=== PATIENT | female | born 1940 | race Caucasian/White ===

== ENCOUNTER → 2019-05-12 14:05 | Outpatient (BNVA) | payer MEDICARE, SELFPAY | PROVIDERS: Family Provider Nurse Practitioner; PCP Nurse Practitioner; Visit Provider Nurse Practitioner | DX: E03.8 Other specified hypothyroidism (principal); I10 Essential (primary) hypertension; F41.9 Anxiety disorder, unspecified | CPT/HCPCS: 80053; 81003; 84443; 85025 ==

== ENCOUNTER → 2019-08-22 10:46 | Outpatient (BNVA) | payer MEDICARE, SELFPAY | PROVIDERS: Family Provider Nurse Practitioner; PCP Nurse Practitioner; Visit Provider Nurse Practitioner | DX: E03.8 Other specified hypothyroidism (principal); Z87.39 Personal history of other diseases of the musculoskeletal system and connective tissue; F41.9 Anxiety disorder, unspecified; I10 Essential (primary) hypertension; D64.9 Anemia, unspecified | CPT/HCPCS: 80048; 82607; 82728; 83550; 85025; 85045 ==

== ENCOUNTER → 2019-11-27 11:46 | Outpatient (BNVA) | payer MEDICARE, SELFPAY | PROVIDERS: Family Provider Nurse Practitioner; PCP Nurse Practitioner; Visit Provider Nurse Practitioner | DX: I10 Essential (primary) hypertension (principal); E03.8 Other specified hypothyroidism; E53.8 Deficiency of other specified B group vitamins; Z87.39 Personal history of other diseases of the musculoskeletal system and connective tissue; F41.9 Anxiety disorder, unspecified | CPT/HCPCS: 80053; 80061; 84443; 85025 ==

== ENCOUNTER → 2020-05-20 11:15 | Outpatient (BNVA) | payer MEDICARE, SELFPAY | PROVIDERS: Family Provider Nurse Practitioner; PCP Nurse Practitioner; Visit Provider Nurse Practitioner | DX: I10 Essential (primary) hypertension (principal); Z87.39 Personal history of other diseases of the musculoskeletal system and connective tissue; E53.8 Deficiency of other specified B group vitamins; F41.9 Anxiety disorder, unspecified; E03.8 Other specified hypothyroidism; K59.01 Slow transit constipation | CPT/HCPCS: 80053; 80061; 82607; 84443; 85025 ==

== ENCOUNTER → 2020-06-28 10:32 | Outpatient (BNVA) | payer MEDICARE, SELFPAY | PROVIDERS: Family Provider Nurse Practitioner; PCP Nurse Practitioner; Visit Provider Nurse Practitioner | DX: I10 Essential (primary) hypertension (principal) | CPT/HCPCS: 80048 ==

== ENCOUNTER → 2020-08-24 09:21 | Outpatient (BNVA) | payer MEDICARE, SELFPAY | PROVIDERS: Family Provider Nurse Practitioner; PCP Nurse Practitioner; Visit Provider Nurse Practitioner | DX: I10 Essential (primary) hypertension (principal); Z87.39 Personal history of other diseases of the musculoskeletal system and connective tissue; E53.8 Deficiency of other specified B group vitamins; F41.9 Anxiety disorder, unspecified; E03.8 Other specified hypothyroidism; K59.01 Slow transit constipation; R41.3 Other amnesia | CPT/HCPCS: 80053; 82607; 84443; 85025 ==

== ENCOUNTER → 2020-11-15 09:34 | Outpatient (BNVA) | payer MEDICARE, SELFPAY | PROVIDERS: Family Provider Nurse Practitioner; PCP Nurse Practitioner; Visit Provider Nurse Practitioner | DX: I10 Essential (primary) hypertension (principal); E03.8 Other specified hypothyroidism; E53.8 Deficiency of other specified B group vitamins; F41.9 Anxiety disorder, unspecified; K59.01 Slow transit constipation; L98.9 Disorder of the skin and subcutaneous tissue, unspecified; Z87.39 Personal history of other diseases of the musculoskeletal system and connective tissue | CPT/HCPCS: 80053; 80061; 82607; 84443 ==

== ENCOUNTER → 2021-02-07 09:12 | Outpatient (BNVA) | payer MEDICARE, SELFPAY | PROVIDERS: Family Provider Nurse Practitioner; PCP Nurse Practitioner; Visit Provider Nurse Practitioner | DX: E03.8 Other specified hypothyroidism (principal); I10 Essential (primary) hypertension | CPT/HCPCS: 80053; 84443; 85025 ==

== ENCOUNTER → 2021-06-27 09:57 | Outpatient (BNVA) | payer MEDICARE, SELFPAY | PROVIDERS: Family Provider Nurse Practitioner; PCP Nurse Practitioner; Visit Provider Nurse Practitioner | DX: E53.8 Deficiency of other specified B group vitamins (principal); E03.8 Other specified hypothyroidism; I10 Essential (primary) hypertension | CPT/HCPCS: 80053; 80061; 82607; 83735; 84443 ==

== ENCOUNTER → 2022-01-17 09:26 | Outpatient (BNVA) | payer MEDICARE, SELFPAY | PROVIDERS: Family Provider Nurse Practitioner; PCP Nurse Practitioner; Visit Provider Nurse Practitioner | DX: E03.8 Other specified hypothyroidism (principal); I10 Essential (primary) hypertension; Z87.39 Personal history of other diseases of the musculoskeletal system and connective tissue; R41.3 Other amnesia; K59.01 Slow transit constipation; Z23 Encounter for immunization | CPT/HCPCS: 80053; 80061; 82607; 84443 ==

== ENCOUNTER → 2022-07-06 11:07 | Outpatient (BNVA) | payer MEDICARE, SELFPAY | PROVIDERS: Family Provider Nurse Practitioner; PCP Nurse Practitioner; Visit Provider Nurse Practitioner | DX: E03.8 Other specified hypothyroidism (principal); E53.8 Deficiency of other specified B group vitamins; I10 Essential (primary) hypertension | CPT/HCPCS: 80053; 80061; 82607; 84443; 85025 ==

== ENCOUNTER → 2022-08-30 11:45 | Outpatient (BNVA) | payer MEDICARE, SELFPAY | PROVIDERS: Family Provider Nurse Practitioner; PCP Nurse Practitioner; Visit Provider Nurse Practitioner Family | DX: M25.561 Pain in right knee (principal) | CPT/HCPCS: 73562 ==

== ENCOUNTER 2022-09-07 09:31 | Outpatient (CLI) | payer MEDICARE, SELFPAY ==
--- NOTE | 2022-09-07 10:00 | CT_ITS ---
WS: [id number] CT KNEE, NONCONTRAST. HISTORY: M25.561 - Pain in right knee, history of fall. Technique: All CT scans at [facility] use at least one of these dose optimization techniques: automated exposure control; mA and/or kV adjustment per patient size (includes targeted exams where dose is matched to clinical indication); or iterative reconstruction. DLP: 379.16 mGy.cm COMPARISON: Radiograph 08/30/2022 Mild tricompartment joint space narrowing with osteophytes. No fracture is identified. Several small foci of increased density within the meniscus consistent with calcifications. There is a suprapatella r joint effusion, small. Patella is normally positioned. There is a large Degroot's cyst extending over a length of 5.8 cm. Moderate calcification also noted within the superficial femoral artery and the popliteal artery. Calcification continues into the proximal tibioperoneal arteries. Small subchondral cystic changes along the tibial plateau. Bony sclerosis and osteophytes along the j oint line. CT/CT knee RT wo con* [id number] IMPRESSION: 1. No fracture or healed fracture identified. 2. Mild tricompartment osteoarthritis. 3. Advanced peripheral arterial disease. 4. Large Degroot's cyst and small suprapatellar joint effusion.
== END 2022-09-07 09:32 | disposition home or self-care (01) ==
PROVIDERS: PCP Nurse Practitioner; Visit Provider Nurse Practitioner Family
DX: S80.01XA Contusion of right knee, initial encounter (principal); M25.869 Other specified joint disorders, unspecified knee; M25.561 Pain in right knee; X58.XXXA Exposure to other specified factors, initial encounter; Y93.9 Activity, unspecified; Y92.9 Unspecified place or not applicable; Y99.9 Unspecified external cause status
CPT/HCPCS: 73700

== ENCOUNTER → 2022-09-21 09:40 | Outpatient (BNVA) | payer MEDICARE, SELFPAY | PROVIDERS: PCP Nurse Practitioner; Visit Provider Student in an Organized Health Care Education/Training Program | DX: M17.11 Unilateral primary osteoarthritis, right knee (principal) | CPT/HCPCS: 20610; 73560; 73565; 99204; J3301 ==

== ENCOUNTER → 2022-11-09 11:34 | Outpatient (BNVA) | payer MEDICARE, SELFPAY | PROVIDERS: PCP Nurse Practitioner; Visit Provider Nurse Practitioner | DX: E03.8 Other specified hypothyroidism (principal); E53.8 Deficiency of other specified B group vitamins; I10 Essential (primary) hypertension; Z87.39 Personal history of other diseases of the musculoskeletal system and connective tissue; R41.3 Other amnesia; M62.838 Other muscle spasm; E87.6 Hypokalemia; K59.01 Slow transit constipation | CPT/HCPCS: 80053; 82607; 84443 ==

== ENCOUNTER 2022-12-01 21:59 | Inpatient (IN) | payer MEDICARE, SELFPAY ==
[2022-12-01 22:00] VITALS: BP 133/62; PULSE 85; RESP 18; TEMP 36.4; O2SAT 97; BMI 25.6
--- NOTE | 2022-12-01 22:11 | XRR_ITS ---
PROCEDURE INFORMATION: Exam: XR Right Femur Exam date and time: 12/01/2022 10:32 PM Age: 82 years old Clinical indication: Injury or trauma; Fall TECHNIQUE: Imaging protocol: Radiologic exam of the right femur. Views: 2 views. COMPARISON: CR XR knee RT 3V* [id number] 08/30/2022 11:44 AM FINDINGS: Bones/joints: Comminuted angulated displaced intertrochanteric fracture right hip. If there are symptoms related to the right knee, three-view right knee without rotation may be helpful complete evaluation. Soft tissues: Unremarkable. XR/XR femur RT min 2V* [id number] IMPRESSION: 1. Comminuted angulated displaced intertrochanteric fracture right hip. 2. If there are symptoms related to the right knee, three-view right knee without rotation may be helpful complete evaluation.
--- NOTE | 2022-12-01 22:12 | XRR_ITS ---
PROCEDURE INFORMATION: Exam: XR Right Knee Exam date and time: 12/01/2022 10:36 PM Age: 82 years old Clinical indication: Injury or trauma; Fall TECHNIQUE: Imaging protocol: Radiologic exam of the right knee. Views: 1 or 2 views. COMPARISON: CR XR knee RT 3V* [id number] 08/30/2022 11:44 AM FINDINGS: Bones/joints: Moderate to severe lateral knee compartment primary osteoarthritis. Abnormal appearing periosteal thickening in the proximal fibular shaft with heterogeneous opacities. If there are symptoms related to the proximal fibular shaft, comparison with the left knee may be helpful to rule out unilateral benign or malignant pathology in the proximal right fibular shaft. Soft tissues: Normal. Other findings: No acute posttraumatic findings. XR/XR knee RT 1-2V [id number] IMPRESSION: 1. Moderate to severe lateral knee compartment primary osteoarthritis. 2. No acute posttraumatic findings. 3. Abnormal appearing periosteal thickening in the proximal fibular shaft with heterogeneous opacities. If there are symptoms related to the proximal fibular shaft, comparison with the left knee may be helpful to rule out unilateral benign or malignant pathology in the proximal right fibular shaft.
--- NOTE | 2022-12-01 22:13 | CTR_ITS ---
PROCEDURE INFORMATION: Exam: CT Cervical Spine Without Contrast Exam date and time: 12/01/2022 10:45 PM Age: 82 years old Clinical indication: Injury or trauma; Fall; Blunt trauma; Patient HX: Patient fell outside onto ground at her home. Hematoma to frontal and RT parietal. TECHNIQUE: Imaging protocol: Computed tomography of the cervical spine without contrast. Radiation optimization: All CT scans at this facility use at least one of these dose optimization techniques: automated exposure control; mA and/or kV adjustment per patient size (includes targeted exams where dose is matched to clinical indication); or iterative reconstruction. REPORTING DATA: Count of CT and Cardiac NM exams in prior 12 months: This patient has received [address] and 0 known cardiac nuclear medicine studies in the 12 months prior to the current study. COMPARISON: CT head wo con* [id number] 12/01/2022 10:42 PM RADIATION DOSE METRICS: Total DLP (mGy-cm): 657.37 FINDINGS: Bones/joints: No acute fracture. Normal alignment. No significant disc bulge or herniation. No severe spinal canal stenosis. No significant neural foraminal narrowing. There is severe degenerative disease of the cervical spine with posterior calcification of the C5 and C6 levels causing mild indentation into the spinal canal. Lungs: Lung apices are normal. Soft tissues: Unremarkable. CT/CT cervical spin wo con* [id number] IMPRESSION: No acute findings.
--- NOTE | 2022-12-01 22:13 | CTR_ITS ---
PROCEDURE INFORMATION: Exam: CT Head Without Contrast Exam date and time: 12/01/2022 10:42 PM Age: 82 years old Clinical indication: Injury or trauma; Fall; Blunt trauma (contusions or hematomas); Patient HX: Patient fell outside onto ground at her home. Hematoma to frontal and RT parietal. TECHNIQUE: Imaging protocol: Computed tomography of the head without contrast. Radiation optimization: All CT scans at this facility use at least one of these dose optimization techniques: automated exposure control; mA and/or kV adjustment per patient size (includes targeted exams where dose is matched to clinical indication); or iterative reconstruction. REPORTING DATA: Count of CT and Cardiac NM exams in prior 12 months: This patient has received [address] and 0 known cardiac nuclear medicine studies in the 12 months prior to the current study. COMPARISON: CT head wo con* [id number] 06/02/2018 3:13 PM RADIATION DOSE METRICS: Total DLP (mGy-cm): 983.58 FINDINGS: Brain: No hemorrhage. There is extensive periventricular white matter disease. No mass effect. There are no intra or extra-axial masses or collections. Basilar cisterns are patent. Cerebral ventricles: The ventricles are prominent secondary to age-appropriate cerebral atrophy. Paranasal sinuses: Visualized sinuses are unremarkable. No fluid levels. Mastoid air cells: Visualized mastoid air cells are well aerated. Bones/joints: Unremarkable. No acute fracture. Soft tissues: There is soft tissue swelling in the frontal and right parietal region. CT/CT head wo con* [id number] IMPRESSION: No acute intracranial abnormality.
--- NOTE | 2022-12-01 22:15 | ECG_ITS ---
[facility] Test Date: 2022-12-01 Pat Name: Annette Erwin Department: Room: Gender: Female Retail Training Manager: : 1940 Requested By: Guilherme Vasquez Order Number: [id number] Gurpreet MD: Ariadne Hammond M.D. Measurements Intervals [place] Rate: 78 P: 76 GA: 142 QRS: 12 QRSD: 88 T: 48 QT: 418 QTc: 476 Interpretive Statements SINUS RHYTHM WITH OCCASIONAL SUPRAVENTRICULAR PREMATURE COMPLEXES Compared to ECG 06/02/2018 17:23:38 No significant changes Electronically Signed On 12-02-2022 12:11:48 CDT by Ariadne Hammond M.D. [email or web address] at stone countyCalastonekindred healthcareColored Solar/store/OM/[id number]
--- NOTE | 2022-12-01 22:18 | W.ED.FALL ---
HPI - Fall General: Chief Complaint: Fall Stated Complaint: FALL Time Seen by Provider: 12/01/22 22:01 History of Present Illness: 82-year-old female who lives at home with family. She fell outdoors at home, striking a door frame likely with her head, and falling on her right side. She complains of right hip and knee pain. She denies headache. She does not know if she was knocked unconscious, but she does not believe so. No blurred vision. No vomiting. She arrives awake, alert, and talking. Family with her. She did not feel ill prior to her fall. She did lay on the ground for 3 hours or so before her family found her. complaint: fall Associated symptoms-after fall: Denies abdominal pain, chest pain, headache(s), neck pain or vertigo Review of Systems Const: Denies: fever(s) Eyes: Denies: blurry vision ENMT: Denies: throat pain or dental pain Card: Denies: chest pain or palpitations Resp: Denies: dyspnea, productive cough or non-productive cough GI: Denies: abdominal pain or vomiting Musc: Reports: extremity pain and joint pain; Denies: neck pain or back pain Neuro: Denies: headache(s), dizziness or vertigo PFSH ED PFSH: Medical History Adult onset hypothyroidism Enlarged thyroid HTN (hypertension) Hx of gout Slow transit constipation Surgical History History of cataract surgery both eyes 2021 History of hysterectomy (08/04/13) History of shoulder surgery (~2000) left Hx of carpal tunnel repair (~2000) right Hx of cholecystectomy (~1999) Hx of colonoscopy (~08/06/18) Hx of foot surgery (~1998) left heel Hx of right knee surgery (~11/14/15) Family History Father Stroke Alzheimer disease Mother Hypertension Denies family history of Bleeding disorder Social History Smoking and tobacco status: never smoked Second hand smoke exposure: No Smoking risk assessment/counseling performed?: No Alcohol intake: never Desire information about alcohol rehabilitation?: No Counseling given: No Substance/Drug Use: never Desire information about substance/drug rehabilitation?: No Counseling given: No Adopted: No Caregiver/support person: No Lives independently: Yes Household members: spouse and none Housing: House Marital status: / service: No Current occupational status: unemployed and retired Current occupational exposures/hazards: No Pets and animals: No Do you think of yourself as: Straight/Heterosexual Current gender identity: Female Physical Exam Const: COMMON NORMALS: no acute distress GENERAL APPEARANCE: cooperative; not ill appearing and not frail appearing HENMT: COMMON NORMALS: normocephalic and Normal external nose present HEAD & SCALP: normocephalic and contusion (Large to forehead with hematoma. No laceration) FACE & SINUS: normal facial exam and face symmetric NOSE: Normal external nose present Eye: COMMON NORMALS: Equal, round and reactive pupils present and EOMs intact bilaterally PUPIL: Yes Equal, round and reactive pupils present Neck/C-Spine: GENERAL: Yes trachea midline Chest: CHEST: Yes Symmetrical chest wall rise Resp: COMMON NORMALS: normal respiratory effort, No retractions, No use of accessory muscles and clear to auscultation bilaterally AUSCULTATION: clear to auscultation bilaterally Cardio: COMMON NORMALS: regular rate and regular rhythm RATE: regular rate RHYTHM: regular rhythm GI: COMMON NORMALS: Normal to inspection, nondistended, normoactive bowel sounds present Extremity: NARRATIVE EXTREMITY EXAM: Examination of the right lower extremity reveals tenderness over the anterior knee. It is held in a flexed position. The hip is held in external rotation position. On gentle internal rotation, the patient complains of thigh pain. Pulses and sensation are intact distally. Neuro: CAROL ANN COMA SCALE: document GCS findings Plato coma scale eye opening: Spontaneous Carol Ann coma scale verbal response: Orientated Plato coma scale motor response: Obey commands Plato coma scale total score: 15 SENSORY EXAM: Yes extremities (intact) Psych: COMMON NORMALS: speech normal SPEECH: Yes normal speech Skin: COMMON NORMALS: no rashes or lesions noted GENERAL SKIN EXAM: no rashes or lesions noted Course Vital Signs: Vital signs: Vital Signs Temperature 97.6 F 12/01/22 22:00 Pulse Rate 79 12/01/22 23:03 Respiratory Rate 23 H 12/01/22 23:52 Blood Pressure 140/41 12/01/22 23:53 Pulse Oximetry 99 12/01/22 23:03 MDM - Fall Medical Decision Making Hip x-ray shows right intertrochanteric femur fracture extending into the femoral neck. Laboratory shows a white blood cell count of 22 likely due to demargination after fall. Sodium is 132. Creatinine 1.1. Liver enzymes are normal. Urinalysis is pending. Youngblood is being placed. Chest x-ray is nonacute. Orthopedics is consulted from the ER. Hospitalist consulted as well. Hospitalist will see the patient in the ER. Head and cervical spine CT reads are pending. Lab Data 12/01/22 22:28 12/01/22 22:28 Radiology Impressions Femur X-Ray 12/01/22 22:11 IMPRESSION: 1. Comminuted angulated displaced intertrochanteric fracture right hip. 2. If there are symptoms related to the right knee, three-view right knee without rotation may be helpful complete evaluation. Knee X-Ray 12/01/22 22:12 IMPRESSION: 1. Moderate to severe lateral knee compartment primary osteoarthritis. 2. No acute posttraumatic findings. 3. Abnormal appearing periosteal thickening in the proximal fibular shaft with heterogeneous opacities. If there are symptoms related to the proximal fibular shaft, comparison with the left knee may be helpful to rule out unilateral benign or malignant pathology in the proximal right fibular shaft. Cervical Spine CT 12/01/22 22:13 IMPRESSION: No acute findings. Head CT 12/01/22 22:13 IMPRESSION: No acute intracranial abnormality. Chest X-Ray 12/01/22 22:54 IMPRESSION: No acute findings. Laboratory Results WBC 22.63 10^3/uL (3.29-11.43) H 12/01/22 22:28 RBC 3.23 10^6/uL (3.85-5.65) L 12/01/22 22:28 Hgb 11.00 g/dL (11.27-16.99) L 12/01/22 22: Hct 33.3 % (36-47) L 12/01/22 22: MCV 103.1 fl (85-98) H 12/01/22 22: MCH 34.1 pg (27-33) H 12/01/22 22: MCHC 33.0 g/dL (30-55) 12/01/22 22: RDW 14.3 % (12.1-15.1) 12/01/22 22: Plt Count 311 10^3/cmm (157-399) 12/01/22 22: MPV 10.1 fL (7.4-10.4) 12/01/22 22: Neut % (Auto) 90.1 % 12/01/22 22: Lymph % (Auto) 3.3 % 12/01/22 22: [place] % (Auto) 5.4 % 12/01/22 22: Eos % (Auto) 0.0 % 12/01/22 22: Baso % (Auto) 0.4 % 12/01/22: Neut # (Auto) 20.40 10^3/uL (1.8-7.7) H 12/01/22: Lymph # (Auto) 0.8 10^3/uL (0.8-4.8) 12/01/22: [place] # (Auto) 1.2 10^3/uL (0.2-0.9) H 12/01/22 22: Eos # (Auto) 0.0 10^3/uL (0.0-0.8) 12/01/22: Baso # (Auto) 0.1 10^3/uL (0.0-0.1) 12/01/22: Nucleated RBC % (auto) 0 % 12/01/22: Nucleated RBCs # 0.0 /100WBC 12/01/22 22: Sodium 132 mmol/L (136-145) L 12/01/22 22: Potassium 3.6 mmol/L (3.5-5.1) 12/01/22: Chloride 96 mmol/L (98-107) L 12/01/22: Carbon Dioxide 22 mmol/L (22-29) 12/01/22: Anion Gap 17.6 (5-19) 12/01/22 22: BUN 17 mg/dL (8-23) 12/01/22 22: Creatinine 1.1 mg/dL (0.5-0.9) H 12/01/22 22: GFR Calculation Not Reportable 12/01/22:28 Glucose 165 mg/dL (65-115) H 12/01/22 22:28 Calculated Osmolality 279 mOsm/kg (285-295) L 12/01/22 22:28 Calcium 9.4 mg/dL (8.5-10.5) 12/01/22 22:28 Total Bilirubin 0.5 mg/dL (0.15-1.2) 12/01/22 22:28 AST 16 U/L (0-32) 12/01/22 22:28 ALT 11 U/L (0-33) 12/01/22 22:28 Alkaline Phosphatase 94 U/L (35-105) 12/01/22 22:28 Creatine Kinase 74 U/L (26-192) 12/01/22 22:28 Total Protein 7.4 g/dL (6.6-8.7) 12/01/22 22:28 Albumin 4.2 g/dL (3.5-5.2) 12/01/22 22:28 Globulin 3.2 g/dL (1.3-4.6) 12/01/22 22:28 All radiology interpretation(s) finalized by discharge Discharge Plan Discharge Patient Disposition: Admitted As Inpatient Admit Provider: Kellie Wilkins Clinical Impression: Fracture of right hip Condition: Stable Coding Level of Care Code ED [employer] Plant Operator for Nirmal Garg
[2022-12-01 22:21] VITALS: RESP 16
[2022-12-01] MEDS: morphine 4 mg/mL SDV 1 mL IVP (22:21)
[2022-12-01] MEDS: ondansetron 2 mg/ML SDV 2 mL 4 MG IVP (22:22)
[2022-12-01 22:33] LABS: Basophils # 0.1 10^3/uL (0.0-0.1); Basophils % 0.4 %; Hematocrit 33.3 % (36-47); Lymphocytes # 0.8 10^3/uL (0.8-4.8); Lymphocytes % 3.3 %; Mean Corpuscular Hemoglobin 34.1 pg (27-33); Mean Corpuscular Volume 103.1 fl (85-98); Mean Platelet Volume 10.1 fL (7.4-10.4); Monocytes # 1.2 10^3/uL (0.2-0.9); Monocytes % 5.4 %; Neutrophils % 90.1 %; Nucleated Red Blood Cells % 0 %; Platelet Count 311 10^3/cmm (157-399); Red Blood Count 3.23 10^6/uL (3.85-5.65); Red Cell Distribution Width 14.3 % (12.1-15.1); White Blood Count 22.63 10^3/uL (3.29-11.43)
[2022-12-01 22:50] LABS: Alanine Aminotransferase 11 U/L (0-33); Albumin Level 4.2 g/dL (3.5-5.2); Alkaline Phosphatase 94 U/L (35-105); Anion Gap 17.6 (5-19); Aspartate Amino Transferase 16 U/L (0-32); Blood Urea Nitrogen 17 mg/dL (8-23); Calcium 9.4 mg/dL (8.5-10.5); Carbon Dioxide 22 mmol/L (22-29); Chloride 96 mmol/L (98-107); Creatine Phosphokinase 74 U/L (26-192); Globulin 3.2 g/dL (1.3-4.6); Glucose 165 mg/dL (65-115); Osmolality Calculated 279 mOsm/kg (285-295); Potassium 3.6 mmol/L (3.5-5.1); Sodium 132 mmol/L (136-145); Total Bilirubin 0.5 mg/dL (0.15-1.2); Total Protein 7.4 g/dL (6.6-8.7)
--- NOTE | 2022-12-01 22:54 | XRR_ITS ---
PROCEDURE INFORMATION: Exam: XR Chest Exam date and time: 12/01/2022 10:59 PM Age: 82 years old Clinical indication: Other: Pre op for hip fracture; Prior surgery; Surgery date: 6+ months; Surgery type: Gb; Patient HX: Pre op for traumatic hip fracture; Additional info: Hip fracture, fall TECHNIQUE: Imaging protocol: Radiologic exam of the chest. Views: 1 view. COMPARISON: CR XR chest 1V [id number] 06/02/2018 2:42 PM FINDINGS: Lungs: Unremarkable. No consolidation. Pleural spaces: Unremarkable. No pleural effusion. No pneumothorax. Heart/Mediastinum: Unremarkable. No cardiomegaly. Bones/joints: Mild right acromioclavicular arthropathy. XR/XR chest 1V portable [id number] IMPRESSION: No acute findings.
[2022-12-01 23:03] VITALS: BP 107/81; PULSE 79; RESP 29; O2SAT 99
[2022-12-01 23:41] LABS: Blood Urine Neg (Negative); Glucose Urine UA 2+ (Normal); Ketones Urine 1+ (Negative); Protein Urine Trace (Negative); Specific Gravity, Urine 1.015 (1.005-1.030); Urine Appearance Clear (CLEAR); Urine Color Yellow (Yellow); pH Urine 6 (5-7)
[2022-12-01 23:42] LABS: Add Urine Culture? No; Add Urine Microscopic? YES; Bacteria Urine TRACE /hpf; Bilirubin Urine Neg (Negative); Leukocyte Esterase Urine Negative (Negative); Nitrate Urine Negative (Negative); RBC Urine RARE /hpf (0-2); Squamous Epithelial Cell Urine RARE /hpf (0-5); Urobilinogen Urine 1 mg/dL (Negative); WBC Urine RARE /hpf (0-5)
[2022-12-01 23:52] VITALS: RESP 23
[2022-12-01] MEDS: morphine 4 mg/mL SDV 1 mL 2 MG IVP (23:52)
[2022-12-01 23:53] VITALS: BP 140/41
--- NOTE | 2022-12-01 23:57 | PM.HP ---
Providers/Chief Complaint Admitting Physician: Kellie Wilkins MD Primary Care Provider: Damari Cardenas, INFRASTRUCTURE TECHNICIAN-C Chief Complaint: FALL History of Present Illness Annette Erwin is a 82 year old female with history of severe right knee arthritis anxiety hypothyroidism hypertension diabetes was brought in by the family after she had a fall at home. She lives alone at home and is physically active, walks around with a cane and still drives a car. She reports her right knee gave way and she lost her balance and hit her head on the railing. Following that she fell on her right side of her leg started complaining of severe right extremity pain with restriction of movements. She denies any dizziness headache nausea vomiting cold cough fever urinary or bowel complaints prior to fall. She also denied any nausea vomiting dizziness post fall. Review of Systems Narrative: As per HPI Medications/Allergies Home Medications Medication Instructions Recorded Confirmed Last Taken Type aspirin 325 mg tablet 81 mg PO DAILY 06/27/21 11/09/22 Unknown History imiquimod 5 % topical cream packet 1 applic topical .M-F #24 ea 03/21/22 11/09/22 Unknown Rx allopurinol 300 mg tablet 300 mg PO QDAY #90 tabs 11/09/22 11/09/22 Unknown Rx amlodipine 5 mg tablet (Norvasc) 5 mg PO DAILY #90 tabs 11/09/22 11/09/22 Unknown Rx donepezil 5 mg tablet (Aricept) 5 mg PO DAILY #90 tabs 11/09/22 11/09/22 Unknown Rx hydrochlorothiazide 25 mg tablet 25 mg PO QDAY #90 tabs 11/09/22 11/09/22 Unknown Rx levothyroxine 75 mcg tablet 75 mcg PO DAILY #90 tabs 11/09/22 11/09/22 Unknown Rx lisinopril 40 mg tablet 40 mg PO QDAY #90 tabs 11/09/22 11/09/22 Unknown Rx magnesium oxide 400 mg PO DAILY #180 tabs 11/09/22 11/09/22 Unknown Rx polyethylene glycol 3350 17 17 g PO DAILY #510 grams 11/09/22 11/09/22 Unknown Rx gram/dose oral powder (Miralax) potassium chloride 8 mEq 8 meq PO DAILY #90 caps 11/09/22 11/09/22 Unknown Rx capsule,extended release Allergies Allergy/AdvReac Type Severity Reaction Status Date / Time No Known Allergies Allergy Verified 11/09/22 10:58 PFSH Acute PFSH: Medical History Adult onset hypothyroidism Enlarged thyroid HTN (hypertension) Hx of gout Slow transit constipation Surgical History History of cataract surgery both eyes 2021 History of hysterectomy (08/04/13) History of shoulder surgery (~2000) left Hx of carpal tunnel repair (~2000) right Hx of cholecystectomy (~1999) Hx of colonoscopy (~08/06/18) Hx of foot surgery (~1998) left heel Hx of right knee surgery (~11/14/15) Family History Father Stroke Alzheimer disease Mother Hypertension Denies family history of Bleeding disorder Social History Smoking and tobacco status: never smoked Second hand smoke exposure: No Smoking risk assessment/counseling performed?: No Alcohol intake: never Desire information about alcohol rehabilitation?: No Counseling given: No Substance/Drug Use: never Desire information about substance/drug rehabilitation?: No Counseling given: No Adopted: No Caregiver/support person: No Lives independently: Yes Household members: spouse and none Housing: House Marital status: / service: No Current occupational status: unemployed and retired Current occupational exposures/hazards: No Pets and animals: No Do you think of yourself as: Straight/Heterosexual Current gender identity: Female Vitals/I&O/Wt Last Vital Signs Temp 97.6 F 12/01/22 22:00 Pulse 79 12/01/22 23:03 Resp 23 H 12/01/22 23:52 BP 140/41 12/01/22 23:53 Pulse Ox 99 12/01/22 23:03 Weight last 48 hrs Weight 63.503 kg Physical Exam Narrative: She is alert awake oriented x3 in acute distress due to right extremity pain. Chest clear to auscultation bilaterally Cardiovascular normal heart sounds regular rate Abdomen NAD Extremities no pedal edema noted, right lower extremity restriction of movements present. Urinary Catheter Management: Youngblood: Cath Placed During This Visit: yes Urinary Catheter Date of Insertion: 12/01/22 Data 12/01/22 22:28 12/01/22 22:28 CXR: Radiologist's impression: No acute findings Xray Ortho: Radiologist's impression: X-ray right knee IMPRESSION: 1. ? Moderate to severe lateral knee compartment primary osteoarthritis. 2. ? No acute posttraumatic findings. 3. ? Abnormal appearing periosteal thickening in the proximal fibular shaft with heterogeneous opacities. If there are symptoms related to the proximal fibular shaft, comparison with the left knee may be helpful to rule out unilateral benign or malignant pathology in the proximal right fibular shaft. X-ray right femur IMPRESSION: 1. ? Comminuted angulated displaced intertrochanteric fracture right hip. 2. ? If there are symptoms related to the right knee, three-view right knee without rotation may be helpful complete evaluation. CT Head: Radiologist's impression: No acute intracranial findings Other Xray: Radiologist's impression: CT cervical spine No acute findings EKG 1: My Interpretation: Normal sinus rhythm at 78 bpm occasional PVCs No acute ST-T changes A&P Assessment and plan (1) Intertrochanteric fracture of right femur: (2) Traumatic injury of head with hematoma of scalp: Plan 82-year-old female with multiple medical problems admitted s/p mechanical fall and found to have right intertrochanteric femur fracture and right-sided scalp hematoma Orthopedics Dr. Ochoa, aware of the patient Plan for corrective surgery in a.m. Keep her n.p.o. past midnight except medications Will give IV morphine 2 mg every 4 hours as needed for pain IV fluids normal saline at 60 mL/h Resume home medications IV Pepcid 20 mg every 12 hours for stress ulcer prophylaxis Intermittent compression stockings for DVT prophylaxis She is full code Labs reviewed and are acceptable except leukocytosis of 22.9 with left shift. In view of absence of fever or any visible signs of infection, leukocytosis likely reactive Will hold off on antibiotics for now Attestations Medical Necessity Statement*: She needs continued hospitalization for more than 2 midnights for corrective surgery for right hip fracture and postop recovery. Time Spent in Patient Care: 30 minutes Coding Level of Care Code Acute Code for Chg Fwd Diagnoses Intertrochanteric fracture of right femur S72.141A Traumatic injury of head with hematoma of scalp S09.90XA; S00.03XA Time Spent (min) 30
[2022-12-02] VITALS (25 sets, daily range): BP systolic 89–176; BP diastolic 42–78; PULSE 64–121; RESP 16–18; TEMP 36.2–36.9; O2SAT 93–100
--- NOTE | 2022-12-02 | XR_ITS ---
WS: [id number] XR hip RT 1V wo/w pel [id number] REASON FOR EXAM: STEVE PICS FINDINGS: Short intramedullary shruthi with large femoral neck nail fixation of intertrochanteric fracture. Fracture fragments are in good position and alignment. Prosthetic compliments are intact and in proper position and alignment. IMPRESSION: Right hip intertrochanteric fracture with fixation without abnormality.
[2022-12-02] MEDS: sodium chloride 0.9% 1,000 ML 60 ML IV ×2 (00:35→19:57)
[2022-12-02] MEDS: famotidine 20 mg/2 mL INJ IVP (00:35)
[2022-12-02] MEDS: morphine 4 mg/mL SDV 1 mL 2 MG IVP ×4 (00:36→14:03)
--- NOTE | 2022-12-02 00:50 | PC.NURSE ---
Patient received her PRN Morphine and is still c/o pain 10/[address] Wilkins notified. 2 mg Morphine x1 ordered.
--- NOTE | 2022-12-02 00:51 | PC.NURSE ---
Home medications locked in Pyxis. Family member at bedside states she will take them home tomorrow.
--- NOTE | 2022-12-02 00:53 | PC.NURSE ---
Patient c/o cramps to left legs and pain to right knee. Patient refusing SCDs.
--- NOTE | 2022-12-02 08:28 | PM.CONSULT ---
Providers/Reason For Consult Consulting Physician/Specialty*: Orthopedics Reason for Consult*: Right Hip Pain Attending Physician: Kellie Wilkins MD Primary Care Provider: YADI Berkowitz History of Present Illness History of Present Illness Annette Erwin is a 82 year old female fell sustaining an Injury to RIght Hip while at home. Family is present to help with Hx as patient has Dementia. Denies Neck or Back pain, Pain in right hip is 8/10 with movement making pain much worse, Rest help relief of pain. pain localized to right hip. Constant, sharp stabbing in nature. Review of Systems Narrative: As per HPI Medications/Allergies Home Medications Medication Instructions Recorded Confirmed Last Taken Type aspirin 325 mg tablet 81 mg PO DAILY 06/27/21 12/02/22 1 Day Ago History ~12/01/22 imiquimod 5 % topical cream packet 1 applic topical .M-F #24 ea 03/21/22 11/09/22 Unknown Rx allopurinol 300 mg tablet 300 mg PO QDAY #90 tabs 11/09/22 12/02/22 1 Day Ago Rx ~12/01/22 amlodipine 5 mg tablet (Norvasc) 5 mg PO DAILY #90 tabs 11/09/22 12/02/22 1 Day Ago Rx ~12/01/22 donepezil 5 mg tablet (Aricept) 5 mg PO DAILY #90 tabs 11/09/22 12/02/22 1 Day Ago Rx ~12/01/22 hydrochlorothiazide 25 mg tablet 25 mg PO QDAY #90 tabs 11/09/22 12/02/22 1 Day Ago Rx ~12/01/22 levothyroxine 75 mcg tablet 75 mcg PO DAILY #90 tabs 11/09/22 12/02/22 1 Day Ago Rx ~12/01/22 lisinopril 40 mg tablet 40 mg PO QDAY #90 tabs 11/09/22 12/02/22 1 Day Ago Rx ~12/01/22 magnesium oxide 400 mg PO DAILY #180 tabs 11/09/22 12/02/22 1 Day Ago Rx ~12/01/22 polyethylene glycol 3350 17 17 g PO DAILY #510 grams 11/09/22 12/02/22 1 Day Ago Rx gram/dose oral powder (Miralax) ~12/01/22 potassium chloride 8 mEq 8 meq PO DAILY #90 caps 11/09/22 12/02/22 1 Day Ago Rx capsule,extended release ~12/01/22 ibuprofen 200 mg tablet 200 mg PO Q6H PRN Pain 12/02/22 12/02/22 Unknown History Allergies Allergy/AdvReac Type Severity Reaction Status Date / Time No Known Allergies Allergy Verified 11/09/22 10:58 Current Medications Generic Name Dose Route Start Last Admin Trade Name Freq PRN Reason Stop Dose Admin Famotidine 20 mg 12/02/22 00:15 12/02/22 00:35 Famotidine 20 Mg/2 Ml Inj IVP 20 mg Q12H MARLO Administration Sodium Chloride 1,000 mls @ 60 mls/hr 12/02/22 00:15 12/02/22 00:35 Sodium Chloride 0.9% IV 60 mls/hr .[id number] MARLO Administration Morphine Sulfate 2 mg 12/02/22 00:12 12/02/22 05:52 Morphine 4 Mg/Ml Sdv 1 Ml IVP 2 mg Q4H PRN Administration SEVERE PAIN PFSH Acute PFSH: Medical History Adult onset hypothyroidism Enlarged thyroid HTN (hypertension) Hx of gout Slow transit constipation Surgical History History of cataract surgery both eyes 2021 History of hysterectomy (08/04/13) History of shoulder surgery (~2000) left Hx of carpal tunnel repair (~2000) right Hx of cholecystectomy (~1999) Hx of colonoscopy (~08/06/18) Hx of foot surgery (~1998) left heel Hx of right knee surgery (~11/14/15) Family History Father Stroke Alzheimer disease Mother Hypertension Denies family history of Bleeding disorder Social History Smoking and tobacco status: never smoked Second hand smoke exposure: No Smoking risk assessment/counseling performed?: No Alcohol intake: never Desire information about alcohol rehabilitation?: No Counseling given: No Substance/Drug Use: never Desire information about substance/drug rehabilitation?: No Counseling given: No Adopted: No Caregiver/support person: No Lives independently: Yes Household members: spouse and none Housing: House Marital status: / service: No Current occupational status: unemployed and retired Current occupational exposures/hazards: No Pets and animals: No Do you think of yourself as: Straight/Heterosexual Current gender identity: Female Vitals/I&O/Wt Last Vital Signs Temp 98 F 12/02/22 07:42 Pulse 70 12/02/22 07:42 Resp 16 12/02/22 07:42 BP 127/71 12/02/22 07:42 Pulse Ox 97 12/02/22 07:42 O2 Del Method Room Air 12/02/22 07:42 12/01/22 12/02/22 12/02/22 22:59 06:59 14:59 Output Total 250 / 250 Balance -250 / -250 Weight last 48 hrs Weight 140 lb Physical Exam Narrative: Alert, Pain with Palpation over the right hip, Postive Log roll, skin warm with good cap reill DP/PT pulses 2+, calves Supple, no pain with palpation in Back or Neck HENMT: COMMON NORMALS: normocephalic and atraumatic HEAD & SCALP: normocephalic and atraumatic Resp: COMMON NORMALS: normal respiratory effort Cardio: COMMON NORMALS: regular rate and regular rhythm RATE: regular rate RHYTHM: regular rhythm GI: COMMON NORMALS: Soft to palpation PALPATION: Yes Soft to palpation : COMMON NORMALS: Yes no CVA tenderness BLADDER/KIDNEY EXAM: Yes no CVA tenderness Back/Pelvis: COMMON NORMALS: no CVA tenderness Psych: COMMON NORMALS: cooperative Urinary Catheter Management: Youngblood: Cath Placed During This Visit: yes Reason for Continuing Indwelling Catheter: Required Immobilization for Trauma or Surgery or Anesthesia Urinary Catheter Date of Insertion: 12/01/22 Data 12/01/22 22:28 12/01/22 22:28 A&P Assessment and plan (1) Fracture of right hip: proceed with ORIF right hip. (2) Intertrochanteric fracture of right femur: Coding Level of Care Code Acute Code for [facility] Diagnoses Fracture of right hip S72.001A Intertrochanteric fracture of right femur S72.141A
[2022-12-02] MEDS: amlodipine 5 mg Tablet PO (08:36)
[2022-12-02] MEDS: hydroCHLOROthiazide 25 mg Tablet PO (08:36)
[2022-12-02] MEDS: lisinopril 20 mg Tablet 40 MG PO (08:36)
--- NOTE | 2022-12-02 08:40 | PC.PHAR ---
pt brought in medication bottles-pt and pts family states the pt is only taking what is in the bag they brought in -
--- NOTE | 2022-12-02 08:48 | W.PM.OPSUD ---
Surgery/Procedure H&P Update DATE OF PROCEDURE: December 02, 2022 DATE H&P PERFORMED: 12/02/22 H&P UPDATE INFORMATION: I have reviewed H&P completed within last 30 days, I have examined patient prior to procedure and No changes to prior documentation PREOP DIAGNOSIS: Right Intertrochanteric Hip Fracture PLANNED PROCEDURE: Operation Date: 12/02/22 08:20 Proposed Procedures p Trochanteric Femoral Nail(Not Applicable) - Louie Evangelista DO
--- NOTE | 2022-12-02 09:50 | PC.NURSE ---
Patient left for surgery at 0946.
[2022-12-02] MEDS: HYDROmorphone 1 mg/mL INJ 1 mL 0.5 MG IVP (10:16)
--- NOTE | 2022-12-02 10:34 | P.ANESASSM_ITS ---
Pre-Anesthetic Assessment Height/Weight: Height 1.57 m Weight 63.503 kg Temp Pulse Resp BP Pulse Ox O2 Del Method 97.2 F L 69 18 126/52 95 Room Air 12/02/22 10:00 12/02/22 10:00 12/02/22 10:16 12/02/22 10:00 12/02/22 10:16 12/02/22 10:00 Preop Diagnosis: Right Intertrochanteric Hip Fracture Operation Date: 12/02/22 08:20 Proposed Procedures p Trochanteric Femoral Nail(Not Applicable) - Louie Evangelista, Familial anesthetic complications: none Was Beta Annabelle taken within 24 hours: N/A Was Clonidine taken within 24 hours: N/A Social No alcohol and No tobacco Exam alert, oriented x 3, clear to auscultation bilaterally and regular rate & rhythm Airway Submandibular: within normal limits Cervical ROM: within normal limits Mallampati: Class II Dentition: false CV/HEM Hypertension Metabolic Thyroid Disease Neuropsych Anxiety Anesthetic Plan ASA status: 3 Anesthesia: General Medications/Allergies Home Medications Medication Instructions Recorded Confirmed Last Taken Type amlodipine 5 mg tablet (Norvasc) 5 mg PO DAILY #90 tabs 11/09/22 12/02/22 Unknown Rx donepezil 5 mg tablet (Aricept) 5 mg PO DAILY #90 tabs 11/09/22 12/02/22 Unknown Rx levothyroxine 75 mcg tablet 75 mcg PO DAILY #90 tabs 11/09/22 12/02/22 Unknown Rx magnesium oxide 400 mg PO DAILY #180 tabs 11/09/22 12/02/22 Unknown Rx polyethylene glycol 3350 17 17 g PO DAILY #510 grams 11/09/22 12/02/22 1 Day Ago Rx gram/dose oral powder (Miralax) ~12/01/22 potassium chloride 8 mEq 8 meq PO DAILY #90 caps 11/09/22 12/02/22 Unknown Rx capsule,extended release allopurinol 300 mg tablet 300 mg PO DAILY 12/02/22 12/02/22 Unknown History aspirin 81 mg tablet,delayed 81 mg PO DAILY 12/02/22 12/02/22 Unknown History release hydrochlorothiazide 25 mg tablet 25 mg PO DAILY 12/02/22 12/02/22 Unknown History ibuprofen 200 mg tablet 200 mg PO Q6H PRN Pain 12/02/22 12/02/22 Unknown History lisinopril 40 mg tablet 40 mg PO DAILY 12/02/22 12/02/22 Unknown History Allergies Allergy/AdvReac Type Severity Reaction Status Date / Time No Known Allergies Allergy Verified 12/02/22 08:38 Current Medications Generic Name Dose Route Start Last Admin Trade Name Freq PRN Reason Stop Dose Admin Amlodipine Besylate 5 mg 12/02/22 09:00 12/02/22 08:36 Amlodipine 5 Mg Tablet PO 5 mg DAILY MARLO Administration Famotidine 20 mg 12/02/22 00:15 12/02/22 00:35 Famotidine 20 Mg/2 Ml Inj IVP 20 mg Q12H MARLO Administration Hydrochlorothiazide 25 mg 12/02/22 09:00 12/02/22 08:36 Hydrochlorothiazide 25 Mg Tablet PO 25 mg DAILY MARLO Administration Hydromorphone HCl 0.5 mg 12/02/22 09:56 12/02/22 10:16 Hydromorphone 1 Mg/Ml Inj 1 Ml IVP 0.5 mg ONCE PRN Administration For preop pain/anxiety Sodium Chloride 1,000 mls @ 60 mls/hr 12/02/22 00:15 12/02/22 00:35 Sodium Chloride 0.9% IV 60 mls/hr .[id number] MARLO Administration Lisinopril 40 mg 12/02/22 09:00 12/02/22 08:36 Lisinopril 20 Mg Tablet PO 40 mg DAILY MARLO Administration Morphine Sulfate 2 mg 12/02/22 00:12 12/02/22 05:52 Morphine 4 Mg/Ml Sdv 1 Ml IVP 2 mg Q4H PRN Administration SEVERE PAIN Non-Formulary Medication 8 meq 12/02/22 09:00 12/02/22 08:37 Potassium Chloride PO 8 meq DAILY MARLO Administration [facility] Anesthesia Medical History Adult onset hypothyroidism Enlarged thyroid HTN (hypertension) Hx of gout Slow transit constipation Surgical History History of cataract surgery both eyes 2021 History of hysterectomy (08/04/13) History of shoulder surgery (~2000) left Hx of carpal tunnel repair (~2000) right Hx of cholecystectomy (~1999) Hx of colonoscopy (~08/06/18) Hx of foot surgery (~1998) left heel Hx of right knee surgery (~11/14/15) Family History Father Stroke Alzheimer disease Mother Hypertension Denies family history of Bleeding disorder Social History Smoking and tobacco status: never smoked Second hand smoke exposure: No Smoking risk assessment/counseling performed?: No Alcohol intake: never Desire information about alcohol rehabilitation?: No Counseling given: No Substance/Drug Use: never Desire information about substance/drug rehabilitation?: No Counseling given: No Adopted: No Caregiver/support person: No Lives independently: Yes Household members: spouse and none Housing: House Marital status: / service: No Current occupational status: unemployed and retired Current occupational exposures/hazards: No Pets and animals: No Do you think of yourself as: Straight/Heterosexual Current gender identity: Female Data Anesthesia 12/01/22 22:28 12/01/22 22:28 Short CBC 12/01/22 Range/Units 22:28 WBC 22.63 H (3.29-11.43) 10^3/uL Hgb 11.00 L (11.27-16.99) g/dL Hct 33.3 L (36-47) % MCV 103.1 H (85-98) fl Plt Count 311 (157-399) 10^3/cmm Neut % (Auto) 90.1 % Neut # (Auto) 20.40 H (1.8-7.7) 10^3/uL BMP 12/01/22 22:28 Sodium 132 L Potassium 3.6 Chloride 96 L Carbon Dioxide 22 BUN 17 Creatinine 1.1 H Glucose 165 H Calcium 9.4 Cardiac Enzymes 12/01/22 Range/Units 22:28 Creatine Kinase 74 (26-192) U/L Liver Function 12/01/22 Range/Units 22:28 Total Bilirubin 0.5 (0.15-1.2) mg/dL AST 16 (0-32) U/L ALT 11 (0-33) U/L Alkaline Phosphatase 94 (35-105) U/L Albumin 4.2 (3.5-5.2) g/dL Urine 12/01/22 Range/Units 23:25 Urine Color Yellow (Yellow) Urine Appearance Clear (CLEAR) Urine pH 6 (5-7) Ur Specific [place] 1.015 (1.005-1.030) Urine Protein Trace (Negative) Urine Glucose (UA) 2+ H (Normal) Urine Ketones 1+ H (Negative) Urine Nitrate Negative (Negative) Urine Bilirubin Neg (Negative) Ur Leukocyte Esterase Negative (Negative) Urine RBC Rare (0-2) /hpf Urine WBC Rare (0-5) /hpf Cardiac Studies: No Data to Display
[2022-12-02] MEDS: ceFAZolin 2,000 MG in sodium chloride 0.9% (plus) 50 ML 100 MG IV ×2 (11:55→19:52)
--- NOTE | 2022-12-02 13:15 | P.PN_ITS ---
Subjective Subjective: Patient was seen post operatively, she is alert to person, to place, not to time she follows commands, she denies a cardiovascular history, no history of heart attacks, no history of strokes, no history of COPD, no history of smoking, denies any dysuria, no abdominal pain, no shortness of breath Vitals/I&O/Wt Last Vital Signs Temp 97.2 F L 12/02/22 10:00 Pulse 69 12/02/22 10:00 Resp 18 12/02/22 10:16 BP 126/52 12/02/22 10:00 Pulse Ox 95 12/02/22 10:16 O2 Del Method Room Air 12/02/22 10:00 O2 Flow Rate 6 12/02/22 13:04 12/01/22 12/02/22 12/02/22 22:59 06:59 14:59 Intake Total 50 / 50 Output Total 250 / 250 25 / 25 Balance -250 / -250 25 / 25 Weight last 48 hrs Weight 63.503 kg Physical Exam Const: COMMON NORMALS: no acute distress Resp: COMMON NORMALS: normal respiratory effort, No retractions, No use of accessory muscles and clear to auscultation bilaterally AUSCULTATION: clear to auscultation bilaterally Cardio: COMMON NORMALS: regular rate, regular rhythm, S1 normal heart sound present and S2 normal heart sound present RATE: regular rate RHYTHM: regular rhythm HEART SOUNDS: S1 normal heart sound present and S2 normal heart sound present GI: COMMON NORMALS: Normal to inspection, nondistended, normoactive bowel sounds present and non-tender Extremity: COMMON NORMALS: no pedal edema Psych: COMMON NORMALS: mental status grossly normal Urinary Catheter Management: Youngblood: Cath Placed During This Visit: yes Reason for Continuing Indwelling Catheter: Required Immobilization for Trauma or Surgery or Anesthesia Urinary Catheter Date of Insertion: 12/01/22 Data 12/01/22 22:28 12/01/22 22:28 A&P Assessment and plan (1) Intertrochanteric fracture of right femur: (2) Traumatic injury of head with hematoma of scalp: Plan [id number] female with multiple medical problems admitted s/p mechanical fall and found to have right intertrochanteric femur fracture and right-sided scalp hematoma Orthopedics Dr. Evangelista, status post intervention Plan for corrective surgery in a.m.s Will give IV morphine 2 mg every 4 hours as needed for pain IV fluids normal saline at 60 mL/h Resume home medications IV Pepcid 20 mg every 12 hours for stress ulcer prophylaxis Intermittent compression stockings for DVT prophylaxis She is full code Labs reviewed and are acceptable except leukocytosis of 22.9 with left shift. In view of absence of fever or any visible signs of infection, leukocytosis likely reactive Chest x-ray no focal pneumonia, UA unremarkable Will hold off on antibiotics for now repeat CBC Repeat CBC Attestations 2 Medical Necessity Statement*: Patient requires hospitalization for fall, right hip fracture Diagnoses Intertrochanteric fracture of right femur S72.141A Traumatic injury of head with hematoma of scalp S09.90XA; S00.03XA
--- NOTE | 2022-12-02 13:27 | P.OP_ITS ---
Operative Report Date of procedure: December 02, 2022 Pre-op diagnosis: Right intertrochanteric hip fracture Post-op diagnosis: same Procedure done: Right intramedullary hip nail Surgeon: Louie Evangelista DO Retail Parts Professional: Riley Ash Retail Parts Professional: The assembler surgical garment, Riley Ash, GABRIELA was needed for his expertise with fracture care. He was important and necessary throughout the procedure to complete in a safe and timely manner. He assisted with patient positioning prepping and draping tissue retraction suctioning of the operative field protection of the critical structures and tissue closure Estimated blood loss (mL): 10 Procedure: Right intertrochanteric hip fracture Patient brought to operative suite after undergoing anesthesia was placed on the [place] table. The fracture was reduced using traction and internal rotation. Patient was then prepped and draped normal sterile fashion. Skin incision is made proximal to the greater trochanter. Starting pin was inserted. Opening reamer was inserted. Canal was tight a guidewire was passed and the femoral canal was reamed to 12 mm. The gamma nail was then inserted. The guidewire was placed up into the center center position of the femoral head on both AP and lateral fluoroscopy. 100 mm screw was placed and compression was put through the screw. The proximal screw was then locked. Next attention was brought to placing the distal locking screw. This was drilled measured to be 35 mm and 35 mm screw was placed. Wounds were irrigated closed with Vicryl and los. Sterile dressings applied patient is transferred to the PACU in stable con dition.
[2022-12-02 13:55] LABS: Basophils % 0.3 %; Eosinophils # 0.2 10^3/uL (0.0-0.8); Eosinophils % 1.4 %; Hematocrit 30.3 % (36-47); Lymphocytes # 1.2 10^3/uL (0.8-4.8); Lymphocytes % 9.3 %; Mean Corpuscular HGB Conc 32.3 g/dL (30-55); Mean Corpuscular Hemoglobin 34.3 pg (27-33); Mean Corpuscular Volume 105.9 fl (85-98); Mean Platelet Volume 11.2 fL (7.4-10.4); Monocytes # 0.9 10^3/uL (0.2-0.9); Monocytes % 6.7 %; Neutrophils # 10.89 10^3/uL (1.8-7.7); Neutrophils % 81.8 %; Nucleated Red Blood Cells % 0 %; Platelet Count 418 10^3/cmm (157-399); Red Blood Count 2.86 10^6/uL (3.85-5.65); Red Cell Distribution Width 14.5 % (12.1-15.1); White Blood Count 13.29 10^3/uL (3.29-11.43)
[2022-12-02] MEDS: ketorolac 30 mg/mL INJ 15 MG IVP (14:34)
[2022-12-02 18:47] LABS: Alanine Aminotransferase 9 U/L (0-33); Alkaline Phosphatase 71 U/L (35-105); Anion Gap 12.9 (5-19); Aspartate Amino Transferase 18 U/L (0-32); Blood Urea Nitrogen 16 mg/dL (8-23); Carbon Dioxide 23 mmol/L (22-29); Chloride 98 mmol/L (98-107); Globulin 2.8 g/dL (1.3-4.6); Glucose 125 mg/dL (65-115); Osmolality Calculated 273 mOsm/kg (285-295); Potassium 3.9 mmol/L (3.5-5.1); Sodium 130 mmol/L (136-145); Total Bilirubin 0.8 mg/dL (0.15-1.2); Total Protein 5.8 g/dL (6.6-8.7)
[2022-12-02] MEDS: HYDROcodone-acetaminophen 5-325 mg Tablet PO ×2 (19:52→23:54)
[2022-12-03] VITALS (7 sets, daily range): BP systolic 102–138; BP diastolic 46–74; PULSE 79–88; RESP 16–19; TEMP 36.3–37.3; O2SAT 93–96
--- NOTE | 2022-12-03 00:01 | PC.NURSE ---
Patient refusing SCD and foot pump, stating I can't hardly sleep with those on.
[2022-12-03] MEDS: HYDROcodone-acetaminophen 5-325 mg Tablet PO ×3 (04:03→17:48)
[2022-12-03] MEDS: enoxaparin 40 mg/0.4 mL Syringe SUBCUT (04:04)
[2022-12-03] MEDS: ceFAZolin 2,000 MG in sodium chloride 0.9% (plus) 50 ML 100 MG IV ×2 (04:04→11:59)
[2022-12-03 04:13] LABS: Basophils % 0.4 %; Eosinophils # 0.2 10^3/uL (0.0-0.8); Eosinophils % 1.5 %; Lymphocytes % 9.7 %; Mean Corpuscular HGB Conc 33.3 g/dL (30-55); Mean Corpuscular Hemoglobin 34.8 pg (27-33); Mean Corpuscular Volume 104.3 fl (85-98); Mean Platelet Volume 11.3 fL (7.4-10.4); Monocytes % 9.5 %; Neutrophils # 8.39 10^3/uL (1.8-7.7); Neutrophils % 78.6 %; Nucleated Red Blood Cells % 0 %; Platelet Count 225 10^3/cmm (157-399); Red Cell Distribution Width 14.6 % (12.1-15.1); White Blood Count 10.67 10^3/uL (3.29-11.43)
[2022-12-03 04:32] LABS: Alanine Aminotransferase 8 U/L (0-33); Albumin Level 2.8 g/dL (3.5-5.2); Alkaline Phosphatase 67 U/L (35-105); Aspartate Amino Transferase 17 U/L (0-32); Blood Urea Nitrogen 17 mg/dL (8-23); Calcium 7.7 mg/dL (8.5-10.5); Carbon Dioxide 24 mmol/L (22-29); Chloride 99 mmol/L (98-107); Globulin 2.6 g/dL (1.3-4.6); Glucose 113 mg/dL (65-115); Osmolality Calculated 276 mOsm/kg (285-295); Sodium 132 mmol/L (136-145); Total Bilirubin 0.6 mg/dL (0.15-1.2); Total Protein 5.4 g/dL (6.6-8.7)
--- NOTE | 2022-12-03 07:54 | PM.PN ---
Subjective Subjective: POD 1 Patient sitting up in bed with family present. No apparent distress. Denies shortness of breath headaches or chest pain. Denies any lightheadedness or dizziness. Vitals/I&O/Wt Last Vital Signs Temp 97.8 F 12/03/22 07:31 Pulse 82 12/03/22 07:31 Resp 17 12/03/22 07:31 BP 102/59 12/03/22 07:31 Pulse Ox 93 12/03/22 07:31 O2 Del Method Room Air 12/03/22 07:31 O2 Flow Rate 1 12/02/22 16:39 12/02/22 12/03/22 12/03/22 22:59 06:59 14:59 Intake Total 180 / 880 50 / 930 Output Total 175 / 200 Balance 180 / 855 -125 / 730 Weight last 48 hrs Weight 140 lb Physical Exam Narrative: Patient is alert and orient x3 has good general appearance normal normal affect. Right hip incision is clean and dry. There is no signs of erythema or drainage no signs of infection. Good motor strength throughout both lower extremities. Fires in all motor groups. Skin is clear warm, feet are warm with good cap refill in all digits. Normal sensation to light touch. Calves are supple, no medial thigh tenderness, negative Homans' sign. No palpable edema peripherally. Urinary Catheter Management: Youngblood: Cath Placed During This Visit: yes, but has since been removed by the nurse Reason for Continuing Indwelling Catheter: Decision to DC Catheter Urinary Catheter Date of Insertion: 12/01/22 Date Urinary Catheter Removed: 12/03/22 Time Urinary Catheter Discontinued: 05:28 Data 12/03/22 02:56 12/03/22 02:56 A&P Assessment and plan (1) Acute blood loss as cause of postoperative anemia: Defer to medical team for medical management. Physical therapy to work with mobilization. Encourage incentive spirometry for pulmonary toilet. information services consultant consulted for placement. Follow-up in the office in 2 weeks time for staple removal. (2) Intertrochanteric fracture of right femur: Attestations Medical Necessity Statement*: Defer to medical team Coding Level of Care Code Acute Code for [facility] Diagnoses Acute blood loss as cause of postoperative anemia D62 Intertrochanteric fracture of right femur S72.141A
[2022-12-03] MEDS: magnesium oxide 400 mg tablet PO (10:12)
[2022-12-03] MEDS: allopurinol 300 mg Tablet PO (10:12)
[2022-12-03] MEDS: levothyroxine 75 mcg Tablet PO (10:12)
[2022-12-03] MEDS: hydroCHLOROthiazide 25 mg Tablet PO (10:13)
[2022-12-03] MEDS: donepezil 5 MG Tablet PO (10:13)
[2022-12-03] MEDS: polyethylene glycol 3350 Pkt 17 gm PO (10:14)
[2022-12-03] MEDS: famotidine 20 mg/2 mL INJ IVP ×2 (10:22→20:40)
[2022-12-03] MEDS: morphine 4 mg/mL SDV 1 mL 2 MG IVP (11:57)
[2022-12-03] MEDS: aspirin 81 mg EC Tablet PO (11:59)
[2022-12-03 12:02] LABS: Ferritin 461 ng/mL (15-150); Iron 23 ug/dL (37-145); Percent Saturation 14.5 % (20-50); Total Iron Binding Capacity 158 mcg/dl; Unsaturated Iron Binding 135 ug/dL (112-347)
[2022-12-03 12:18] LABS: Vitamin B12 191 pg/mL (232-1245)
[2022-12-03 12:19] LABS: Folate Level < 20.0 ng/mL (4.8-37.3)
[2022-12-03 13:38] LABS: Hematocrit 24.4 % (36-47)
[2022-12-03] MEDS: ketorolac 30 mg/mL INJ 15 MG IVP ×2 (14:09→20:45)
--- NOTE | 2022-12-03 15:30 | ANE.PACU2 ---
Inpatient post-anesthesia follow up: Airway intact: Yes Vital signs: Temperature 97.6 F Pulse Rate 79 Respiratory Rate 18 Blood Pressure 134/74 Pulse Oximetry 96 Oxygen Delivery Me thod Room Air Oxygen Flow Rate 1 Fraction of Inspir ed Oxygen Hydration adequate: Yes Nausea and vomiting: No Pain level: 2 Mental status: Baseline
--- NOTE | 2022-12-03 15:41 | P.PN_ITS ---
Subjective Subjective: Patient was seen this morning, she is sitting up in a chair, family members at bedside, she tells me that she does feel weak, fatigued, she work with physical therapy, pain is under control, no fevers, no chills, no cough, no dysuria, Youngblood catheter was removed she does have some degree of a poor appetite Vitals/I&O/Wt Last Vital Signs Temp 97.6 F 12/03/22 11:43 Pulse 79 12/03/22 11:43 Resp 18 12/03/22 11:57 BP 134/74 12/03/22 11:43 Pulse Ox 96 12/03/22 11:43 O2 Del Method Room Air 12/03/22 11:43 O2 Flow Rate 1 12/02/22 16:39 12/03/22 12/03/22 12/03/22 06:59 14:59 22:59 Intake Total 50 / 930 2007 Output Total 175 / 200 Balance -125 / 730 2007 Weight last 48 hrs Weight 63.503 kg Physical Exam Const: COMMON NORMALS: no acute distress and patient oriented x3 Resp: COMMON NORMALS: normal respiratory effort, No retractions, No use of accessory muscles and clear to auscultation bilaterally AUSCULTATION: clear to auscultation bilaterally Cardio: COMMON NORMALS: regular rate, regular rhythm, S1 normal heart sound present and S2 normal heart sound present RATE: regular rate RHYTHM: regular rhythm HEART SOUNDS: S1 normal heart sound present and S2 normal heart sound present GI: COMMON NORMALS: Normal to inspection, nondistended, normoactive bowel sounds present and non-tender Extremity: COMMON NORMALS: no pedal edema Neuro: COMMON NORMALS: patient oriented x3 Psych: COMMON NORMALS: mental status grossly normal Urinary Catheter Management: Youngblood: Cath Placed During This Visit: yes, but has since been removed by the nurse Reason for Continuing Indwelling Catheter: Decision to DC Catheter Urinary Catheter Date of Insertion: 12/01/22 Date Urinary Catheter Removed: 12/03/22 Time Urinary Catheter Discontinued: 05:28 Data 12/03/22 13:22 12/03/22 02:56 A&P Assessment and plan (1) Intertrochanteric fracture of right femur: (2) Traumatic injury of head with hematoma of scalp: (3) Acute blood loss as cause of postoperative anemia: (4) Fracture of right hip: (5) Vitamin B12 deficiency: Plan [id number] female with multiple medical problems admitted s/p mechanical fall and found to have right intertrochanteric femur fracture and right-sided scalp hematoma Orthopedics Dr. Evangelista, status post intervention Will give IV morphine 2 mg every 4 hours as needed for pain IV fluids normal saline at 60 mL/h Resume home medications IV Pepcid 20 mg every 12 hours for stress ulcer prophylaxis Acute postoperative blood loss anemia, monitor hemoglobin closely, has B12 deficiency will replace, monitor hemodynamics, Hemoccult stool Intermittent compression stockings for DVT prophylaxis, Lovenox She is full code Labs reviewed and are acceptable except leukocytosis of 22.9 with left shift. Resolved In view of absence of fever or any visible signs of infection, leukocytosis likely reactive Chest x-ray no focal pneumonia, UA unremarkable Plan for today monitor hemoglobin down to 8.1, replace B12 continue fluids, up out of bed, pain control, postoperative anemia, Attestations Medical Necessity Statement*: Patient requires hospitalization for acute postoperative blood loss anemia, hip fracture status post surgical invention Coding Level of Care Code 83416 Moderate MDM includes number and complexity of problems actively addressed during encounter, amount and/or complexity of data reviewed/ordered and described risk of complication, morbidity or mortality of management as document ed Diagnoses Intertrochanteric fracture of right femur S72.141A Traumatic injury of head with hematoma of scalp S09.90XA; S00.03XA Acute blood loss as cause of postoperative anemia D62 Fracture of right hip S72.001A Vitamin B12 deficiency E53.8
[2022-12-03] MEDS: cyanocobalamin 1,000 mcg Tablet 1000 MCG PO (17:48)
[2022-12-03 19:00] LABS: Hematocrit 23.8 % (36-47)
[2022-12-04] VITALS (10 sets, daily range): BP systolic 107–134; BP diastolic 52–84; PULSE 70–94; RESP 14–18; TEMP 36.3–36.8; O2SAT 94–99
[2022-12-04 05:14] LABS: Basophils # 0.1 10^3/uL (0.0-0.1); Basophils % 0.9 %; Eosinophils # 0.3 10^3/uL (0.0-0.8); Hematocrit 21.8 % (36-47); Lymphocytes # 1.4 10^3/uL (0.8-4.8); Lymphocytes % 17.3 %; Mean Corpuscular HGB Conc 32.6 g/dL (30-55); Mean Corpuscular Hemoglobin 33.8 pg (27-33); Mean Corpuscular Volume 103.8 fl (85-98); Mean Platelet Volume 10.9 fL (7.4-10.4); Monocytes # 0.9 10^3/uL (0.2-0.9); Monocytes % 10.5 %; Neutrophils # 5.47 10^3/uL (1.8-7.7); Neutrophils % 66.8 %; Nucleated Red Blood Cells % 0 %; Platelet Count 183 10^3/cmm (157-399); Red Cell Distribution Width 14.3 % (12.1-15.1); White Blood Count 8.19 10^3/uL (3.29-11.43)
[2022-12-04 05:35] LABS: Blood Urea Nitrogen 18 mg/dL (8-23); Calcium 7.8 mg/dL (8.5-10.5); Carbon Dioxide 26 mmol/L (22-29); Chloride 97 mmol/L (98-107); Glucose 93 mg/dL (65-115); Osmolality Calculated 268 mOsm/kg (285-295); Sodium 128 mmol/L (136-145)
[2022-12-04] MEDS: enoxaparin 40 mg/0.4 mL Syringe SUBCUT (06:29)
[2022-12-04] MEDS: HYDROcodone-acetaminophen 5-325 mg Tablet PO ×2 (06:29→11:50)
[2022-12-04] MEDS: donepezil 5 MG Tablet PO (08:11)
[2022-12-04] MEDS: allopurinol 300 mg Tablet PO (08:11)
[2022-12-04] MEDS: polyethylene glycol 3350 Pkt 17 gm PO (08:11)
[2022-12-04] MEDS: levothyroxine 75 mcg Tablet PO (08:11)
[2022-12-04] MEDS: aspirin 81 mg EC Tablet PO (08:11)
[2022-12-04] MEDS: amlodipine 5 mg Tablet PO (08:11)
[2022-12-04] MEDS: hydroCHLOROthiazide 25 mg Tablet PO (08:11)
[2022-12-04] MEDS: cyanocobalamin 1,000 mcg Tablet 1000 MCG PO (08:11)
[2022-12-04] MEDS: magnesium oxide 400 mg tablet PO (08:11)
[2022-12-04] MEDS: lisinopril 20 mg Tablet 40 MG PO (08:11)
[2022-12-04] MEDS: sodium chloride 0.9% 100 mL Bag 50 ML IV (11:52)
--- NOTE | 2022-12-04 12:47 | P.PN_ITS ---
Subjective Subjective: Patient was seen this morning, she tells me that she had a difficult night, she was not able to fall asleep, she tells me that her family members were worried that the morphine last night was making her confused, but she does better with the hydrocodone, she feels a bit nauseous this morning, no vomiting, she has not had a bowel movement Vitals/I&O/Wt Last Vital Signs Temp 97.9 F 12/04/22 12:01 Pulse 74 12/04/22 12:01 Resp 16 12/04/22 12:01 BP 107/52 12/04/22 12:01 Pulse Ox 99 12/04/22 12:01 O2 Del Method Room Air 12/04/22 07:43 O2 Flow Rate 1 12/02/22 16:39 12/03/22 12/04/22 12/04/22 22:59 06:59 14:59 Intake Total 480 / 2488 480 / 480 Balance 480 / 2488 480 / 480 Physical Exam Const: COMMON NORMALS: no acute distress and patient oriented x3 Resp: COMMON NORMALS: normal respiratory effort, No retractions, No use of accessory muscles and clear to auscultation bilaterally AUSCULTATION: clear to auscultation bilaterally Cardio: COMMON NORMALS: regular rate, regular rhythm, S1 normal heart sound present and S2 normal heart sound present RATE: regular rate RHYTHM: regular rhythm HEART SOUNDS: S1 normal heart sound present and S2 normal heart sound present GI: COMMON NORMALS: Normal to inspection, nondistended, normoactive bowel sounds present and non-tender Extremity: COMMON NORMALS: no pedal edema Neuro: COMMON NORMALS: patient oriented x3 Psych: COMMON NORMALS: mental status grossly normal Urinary Catheter Management: Youngblood: Cath Placed During This Visit: yes, but has since been removed by the nurse Reason for Continuing Indwelling Catheter: Decision to DC Catheter Urinary Catheter Date of Insertion: 12/01/22 Date Urinary Catheter Removed: 12/03/22 Time Urinary Catheter Discontinued: 05:28 Data 12/04/22 04:24 12/04/22 04:24 A&P Assessment and plan (1) Intertrochanteric fracture of right femur: (2) Traumatic injury of head with hematoma of scalp: (3) Acute blood loss as cause of postoperative anemia: (4) Fracture of right hip: (5) Vitamin B12 deficiency: (6) Hyponatremia: Plan 82-year-old female with multiple medical problems admitted s/p mechanical fall and found to have right intertrochanteric femur fracture and right-sided scalp hematoma Orthopedics Dr. Evangelista, status post intervention Continue hydrocodone for pain control IV fluids normal saline at 60 mL/h Resume home medications IV Pepcid 20 mg every 12 hours for stress ulcer prophylaxis Acute postoperative blood loss anemia, monitor hemoglobin closely, has B12 defic iency will replace, monitor hemodynamics, Hemoccult stool, hemoglobin 7.2, will give 1 unit PRBC, recheck hemoglobin in the afternoon Right hip examination, dressing looks clean and dry, monitor Intermittent compression stockings for DVT prophylaxis, Lovenox currently on hold due to postoperative anemia She is full code Acute postoperative blood loss anemia as above Vitamin B12 deficiency, as above Hyponatremia, IV fluids Constipation, continue MiraLAX add lactulose today Plan for today transfuse 1 unit PRBC monitor hemoglobin, monitor right hip, monitor nausea, vomiting, has not had a bowel movement, serum sodium 128 start fluids Attestations Medical Necessity Statement*: Patient requires hospitalization for right hip fracture status post surgery, now with acute blood loss anemia requiring transfusion now with acute hyponatremia requiring fluids Diagnoses Intertrochanteric fracture of right femur S72.141A Traumatic injury of head with hematoma of scalp S09.90XA; S00.03XA Acute blood loss as cause of postoperative anemia D62 Fracture of right hip S72.001A Vitamin B12 deficiency E53.8 Hyponatremia E87.1
[2022-12-04] MEDS: lactulose oral liq 20 gm/30 mL UDC PO (14:16)
[2022-12-04] MEDS: ondansetron 2 mg/ML SDV 2 mL 4 MG IVP (14:49)
[2022-12-04 16:37] LABS: Hematocrit 29.3 % (36-47)
[2022-12-04] MEDS: sodium chloride 0.9% 1,000 ML 50 ML IV (17:46)
[2022-12-04] MEDS: famotidine 20 mg/2 mL INJ IVP (22:00)
[2022-12-05] VITALS: BP 129/70; PULSE 93; RESP 16; TEMP 37; O2SAT 95
[2022-12-05 04:00] VITALS: BP 128/73; PULSE 84; RESP 13; TEMP 36.8; O2SAT 95
[2022-12-05 05:40] LABS: Basophils # 0.1 10^3/uL (0.0-0.1); Basophils % 0.8 %; Eosinophils # 0.3 10^3/uL (0.0-0.8); Hematocrit 25.9 % (36-47); Lymphocytes # 1.1 10^3/uL (0.8-4.8); Lymphocytes % 14.5 %; Mean Corpuscular HGB Conc 34.4 g/dL (30-55); Mean Corpuscular Hemoglobin 33.7 pg (27-33); Mean Corpuscular Volume 98.1 fl (85-98); Monocytes # 0.8 10^3/uL (0.2-0.9); Monocytes % 10.1 %; Neutrophils # 5.28 10^3/uL (1.8-7.7); Neutrophils % 70.2 %; Nucleated Red Blood Cells % 0 %; Platelet Count 196 10^3/cmm (157-399); Red Blood Count 2.64 10^6/uL (3.85-5.65); Red Cell Distribution Width 16.5 % (12.1-15.1); White Blood Count 7.52 10^3/uL (3.29-11.43)
[2022-12-05 05:59] LABS: Anion Gap 11.6 (5-19); Blood Urea Nitrogen 14 mg/dL (8-23); Calcium 8.3 mg/dL (8.5-10.5); Carbon Dioxide 25 mmol/L (22-29); Chloride 99 mmol/L (98-107); Glucose 89 mg/dL (65-115); Osmolality Calculated 274 mOsm/kg (285-295); Potassium 3.6 mmol/L (3.5-5.1); Sodium 132 mmol/L (136-145)
[2022-12-05 07:42] VITALS: BP 130/64; PULSE 81; RESP 18; TEMP 37.1; O2SAT 98
[2022-12-05] MEDS: HYDROcodone-acetaminophen 5-325 mg Tablet PO ×2 (08:51→13:54)
[2022-12-05] MEDS: magnesium oxide 400 mg tablet PO (08:51)
[2022-12-05] MEDS: docusate sodium 100 mg Capsule PO (08:51)
[2022-12-05] MEDS: allopurinol 300 mg Tablet PO (08:51)
[2022-12-05] MEDS: levothyroxine 75 mcg Tablet PO (08:52)
[2022-12-05] MEDS: aspirin 81 mg EC Tablet PO (08:52)
[2022-12-05] MEDS: donepezil 5 MG Tablet PO (08:52)
[2022-12-05] MEDS: cyanocobalamin 1,000 mcg Tablet 1000 MCG PO (08:53)
[2022-12-05] MEDS: lisinopril 20 mg Tablet 40 MG PO (08:53)
[2022-12-05] MEDS: hydroCHLOROthiazide 25 mg Tablet PO (08:53)
[2022-12-05] MEDS: amlodipine 5 mg Tablet PO (08:53)
[2022-12-05] MEDS: polyethylene glycol 3350 Pkt 17 gm PO (08:54)
[2022-12-05] MEDS: famotidine 20 mg/2 mL INJ IVP (08:54)
[2022-12-05 11:36] VITALS: BP 130/70; PULSE 83; RESP 17; TEMP 36.8; O2SAT 98
--- NOTE | 2022-12-05 12:12 | P.DS_ITS ---
Discharge Providers Date of Admission: 12/02/22 00:05 Date of Discharge: December 05, 2022 Attending Provider at Admission: Kellie Wilkins MD Attending Provider at Discharge: Douglas Matthews MD Primary Care Provider: YADI Berkowitz Diagnoses at Discharge Discharge Diagnosis (1) Intertrochanteric fracture of right femur: Status: Resolved (2) Traumatic injury of head with hematoma of scalp: Status: Resolved (3) Acute blood loss as cause of postoperative anemia: Status: Resolved (4) Fracture of right hip: Status: Resolved (5) Vitamin B12 deficiency: Status: Chronic (6) Hyponatremia: Status: Resolved Reason for Visit Reason for Visit: FALL Hospital Course Hospital Course Annette Erwin is a 82 year old female? with history of severe right knee arthritis, anxiety, hypothyroidism, hypertension, who presents to [facility] after a fall Patient presented to [facility], status post mechanical fall, found to have a right intertrochanteric femur fracture in the right sided scalp hematoma. Right-sided scalp hematoma was conservatively managed, on discharge it has not significantly increased in size, stable. Orthopedic service was consulted, patient underwent right intramedullary hip nail, patient's postoperative course was complicated with acute postoperative blood loss anemia, requiring 1 unit PRBC, no reports of bloody or black stools, no bleeding from surgical site, her DVT prophylaxis Lovenox was held she was clinically monitored, hemoglobin remained stable on discharge, hemodynamically stable. On discharge she was discharged on hydrocodone for pain control, continue aspirin 81 mg for DVT prophylaxis, decision was made not to discharge her on Lovenox for DVT prophylaxis on discharge given her anemia, and her Hemoccult positive stools. Patient was advised to monitor for hypercoagulability events, signs and symptoms of DVT or PE if so go to the emergency room. Patient will be discharged to longterm facility for rehab. Patient was discharged on hydrocodone for pain control, do not drive operate machinery or drink while taking the medication, use sparingly for pain. Patient was found to have acute postoperative blood loss anemia, some component related to B12 deficiency, discharged on vitamin B12. Some component of patient's anemia was concerning for slow GI bleed, although no hemodynamic compromise, her stool was positive for blood. On discharge I have discharged her on Protonix, Carafate, hemoglobin discharge was 9.0, stable, I have instructed snf to monitor hemoglobin as outpatient, repeat in 48 hours, if less than 7 please bring back to the emergency room, I have referred her to general surgery as outpatient for consideration of EGD and colonoscopy. She does have evidence of iron deficiency anemia, monitor iron levels as outpatient, discharged on iron, she might require IV iron in the future, as she has to have consideration of EGD and colonoscopy as above. Physical Exam Const: COMMON NORMALS: no acute distress and patient oriented x3 Resp: COMMON NORMALS: normal respiratory effort, No retractions, No use of accessory muscles and clear to auscultation bilaterally AUSCULTATION: clear to auscultation bilaterally Cardio: COMMON NORMALS: regular rate, regular rhythm, S1 normal heart sound present and S2 normal heart sound present RATE: regular rate RHYTHM: regular rhythm HEART SOUNDS: S1 normal heart sound present and S2 normal heart sound present GI: COMMON NORMALS: Normal to inspection, nondistended, normoactive bowel sounds present and non-tender Extremity: COMMON NORMALS: no pedal edema Neuro: COMMON NORMALS: patient oriented x3 Psych: COMMON NORMALS: mental status grossly normal Urinary Catheter Management: Youngblood: Cath Placed During This Visit: yes, but has since been removed by the nurse Reason for Continuing Indwelling Catheter: Decision to DC Catheter Urinary Catheter Date of Insertion: 12/01/22 Date Urinary Catheter Removed: 12/03/22 Time Urinary Catheter Discontinued: 05:28 Discharge Data Studies Completed and Pending Completed Studies During Hospitalization Category Date Time Status CT cervical spine wo con [CT cervical spin wo con* Cat Scan 12/01/22 22:13 Completed 32516] Stat CT head wo con* [id number] Stat Cat Scan 12/01/22 22:13 Completed XR chest 1V portable [id number] Stat Exams 12/01/22 22:54 Completed XR femur RT min 2V* [id number] Stat Exams 12/01/22 22:11 Completed XR hip RT 1V wo/w pel [id number] Routine Exams 12/02/22 Completed XR knee RT 1-2V [id number] Stat Exams 12/01/22 22:12 Completed Pending at discharge Category Date Time Status Basic Metabolic Panel AM LABS Lab 12/06/22 04:00 Ordered COVID [SARS Covid-2 Antigen] Routine Lab 12/04/22 17:27 Uncollected Complete Blood Count w/Auto AM LABS Lab 12/06/22 04:00 Ordered Radiology Impressions Femur X-Ray 12/01/22 22:11 IMPRESSION: 1. Comminuted angulated displaced intertrochanteric fracture right hip. 2. If there are symptoms related to the right knee, three-view right knee without rotation may be helpful complete evaluation. Knee X-Ray 12/01/22 22:12 IMPRESSION: 1. Moderate to severe lateral knee compartment primary osteoarthritis. 2. No acute posttraumatic findings. 3. Abnormal appearing periosteal thickening in the proximal fibular shaft with heterogeneous opacities. If there are symptoms related to the proximal fibular shaft, comparison with the left knee may be helpful to rule out unilateral benign or malignant pathology in the proximal right fibular shaft. Cervical Spine CT 12/01/22 22:13 IMPRESSION: No acute findings. Head CT 12/01/22 22:13 IMPRESSION: No acute intracranial abnormality. Chest X-Ray 12/01/22 22:54 IMPRESSION: No acute findings. Laboratory Results WBC 7.52 10^3/uL (3.29-11.43) 12/05/22 05:12 RBC 2.64 10^6/uL (3.85-5.65) L 12/05/22 05:12 Hgb 9.10 g/dL (11.27-16.99) L 12/05/22 09:49 Hct 27.0 % (36-47) L 12/05/22 09:49 MCV 98.1 fl (85-98) H 12/05/22 05:12 MCH 33.7 pg (27-33) H 12/05/22 05:12 MCHC 34.4 g/dL (30-55) D 12/05/22 05:12 RDW 16.5 % (12.1-15.1) H 12/05/22 05:12 Plt Count 196 10^3/cmm (157-399) 12/05/22 05:12 MPV 11.0 fL (7.4-10.4) H 12/05/22 05:12 Neut % (Auto) 70.2 % 12/05/22 05:12 Lymph % (Auto) 14.5 % 12/05/22 05:12 [place] % (Auto) 10.1 % 12/05/22 05:12 Eos % (Auto) 4.0 % 12/05/22 05:12 Baso % (Auto) 0.8 % 12/05/22 05:12 Neut # (Auto) 5.28 10^3/uL (1.8-7.7) 12/05/22 05:12 Lymph # (Auto) 1.1 10^3/uL (0.8-4.8) 12/05/22 05:12 [place] # (Auto) 0.8 10^3/uL (0.2-0.9) 12/05/22 05:12 Eos # (Auto) 0.3 10^3/uL (0.0-0.8) 12/05/22 05:12 Baso # (Auto) 0.1 10^3/uL (0.0-0.1) 12/05/22 05:12 Nucleated RBC % (auto) 0 % 12/05/22 05:12 Nucleated RBCs # 0.0 /100WBC 12/05/22 05:12 Sodium 132 mmol/L (136-145) L 12/05/22 05:12 Potassium 3.6 mmol/L (3.5-5.1) 12/05/22 05:12 Chloride 99 mmol/L (98-107) 12/05/22 05:12 Carbon Dioxide 25 mmol/L (22-29) 12/05/22 05:12 Anion Gap 11.6 (5-19) 12/05/22 05:12 BUN 14 mg/dL (8-23) 12/05/22 05:12 Creatinine 1.0 mg/dL (0.5-0.9) H 12/05/22 05:12 GFR Calculation Not Reportable 12/05/22 05:12 Glucose 89 mg/dL (65-115) 12/05/22 05:12 Calculated Osmolality 274 mOsm/kg (285-295) L 12/05/22 05:12 Calcium 8.3 mg/dL (8.5-10.5) L 12/05/22 05:12 Iron 23 ug/dL (37-145) L 12/03/22 02:56 TIBC 158 mcg/dl 12/03/22 02:56 % Saturation 14.5 % (20-50) L 12/03/22 02:56 Unsat Iron Binding 135 ug/dL (112-347) 12/03/22 02:56 Ferritin 461 ng/mL (15-150) H 12/03/22 02:56 Total Bilirubin 0.6 mg/dL (0.15-1.2) 12/03/22 02:56 AST 17 U/L (0-32) 12/03/22 02:56 ALT 8 U/L (0-33) 12/03/22 02:56 Alkaline Phosphatase 67 U/L (35-105) 12/03/22 02:56 Creatine Kinase 74 U/L (26-192) 12/01/22 22:28 Total Protein 5.4 g/dL (6.6-8.7) L 12/03/22 02:56 Albumin 2.8 g/dL (3.5-5.2) L 12/03/22 02:56 Globulin 2.6 g/dL (1.3-4.6) 12/03/22 02:56 Vitamin B12 191 pg/mL (232-1245) L 12/03/22 02:56 Folate < 20.0 ng/mL (4.8-37.3) 12/03/22 02:56 Urine Color Yellow (Yellow) 12/01/22 23:25 Urine Appearance Clear (CLEAR) 12/01/22 23:25 Urine pH 6 (5-7) 12/01/22 23:25 Ur Specific [place] 1.015 (1.005-1.030) 12/01/22 23:25 Urine Protein Trace (Negative) 12/01/22 23:25 Urine Glucose (UA) 2+ (Normal) H 12/01/22 23:25 Urine Ketones 1+ (Negative) H 12/01/22 23:25 Urine Blood Neg (Negative) 12/01/22 23:25 Urine Nitrate Negative (Negative) 12/01/22 23:25 Urine Bilirubin Neg (Negative) 12/01/22 23:25 Urine Urobilinogen 1 mg/dL (Negative) H 12/01/22 23:25 Ur Leukocyte Esterase Negative (Negative) 12/01/22 23:25 Urine RBC Rare /hpf (0-2) 12/01/22 23:25 Urine WBC Rare /hpf (0-5) 12/01/22 23:25 Ur Squamous Epith Cells Rare /hpf (0-5) 12/01/22 23:25 Amorphous Sediment Not Reportable 12/01/22 23:25 Urine Bacteria Trace /hpf (NONE) 12/01/22 23:25 Blood Type O Positive 12/04/22 08:39 Rho(D) Type Positive 12/04/22 08:39 Antibody Screen Negative 12/04/22 08:39 Crossmatch See Detail 12/04/22 08:39 Vitals Last Vital Signs Temp 98.3 F 12/05/22 11:36 Pulse 83 12/05/22 11:36 Resp 17 12/05/22 11:36 BP 130/70 12/05/22 11:36 Pulse Ox 98 12/05/22 11:36 O2 Del Method Room Air 12/05/22 11:36 O2 Flow Rate 1 12/02/22 16:39 Discharge Plan Discharge Patient Disposition: Xfer SNF Condition: Stable Prescriptions: New Vitamin B-12 1,000 mcg Tablet 1,000 mcg PO DAILY 30 Days Qty: 60 0RF allopurinol 300 mg Tablet 300 mg PO DAILY 30 Days Qty: 30 0RF docusate sodium 100 mg Capsule 100 mg PO BID 30 Days Qty: 60 0RF ferrous sulfate 300 mg (60 mg iron)/5 mL Liquid 300 mg PO BIDWM 30 Days Qty: 150 0RF hydrocodone-acetaminophen 5-325 mg Tablet 1 tab PO Q4H PRN (Reason: Pain) 7 Days Qty: 42 0RF Protonix 40 mg tablet,delayed release (DR/EC) 40 mg PO BID 30 Days Qty: 60 0RF Carafate 1 gram tablet 1 g PO BID 28 Days Qty: 56 0RF Continued amlodipine [Norvasc] 5 mg tablet 5 mg PO DAILY Qty: 90 0RF donepezil [Aricept] 5 mg tablet 5 mg PO DAILY Qty: 90 0RF levothyroxine 75 mcg tablet 75 mcg PO DAILY Qty: 90 0RF magnesium oxide 400 mg magnesium tablet 400 mg PO DAILY Qty: 180 0RF Rx Instructions: for muscle pain feet and legs potassium chloride 8 mEq capsule, extended release 8 meq PO DAILY Qty: 90 0RF polyethylene glycol 3350 [Miralax] 17 gram/dose powder 17 g PO DAILY Qty: 510 2RF aspirin 81 mg Tablet,Delayed Release (Dr/Ec) 81 mg PO DAILY allopurinol 300 mg tablet 300 mg PO DAILY hydrochlorothiazide 25 mg tablet 25 mg PO DAILY lisinopril 40 mg tablet 40 mg PO DAILY Discontinued ibuprofen 200 mg Tablet 200 mg PO Q6H PRN (Reason: Pain) Discharge Orders: Discharge Order (Routine); Ordered 12/05/22 Ordered By: Douglas Matthews Referrals: [facility] [Outside] Dami Munguia MD [Physician] - 01/04/23 2:15 pm Louie Evangelista DO [Physician] - 12/19/22 10:15 am Damari Cardenas, [employer] [Primary Care Provider] - 1 week Discharge Diet: Advance as tolerated Discharge Activity: Limit activity as instructed Patient Instructions: Opioid Safety Activity Restrictions/Additional Instructions: -Please monitor hemoglobin as outpatient, hemoglobin discharge was 9.0, she required 1 unit during her hospitalization, please recheck her hemoglobin in 48 hours -If she develops any bloody or black stools please go to emergency room -I have referred her to general surgery for consideration of colonoscopy and EGD in 1 month -Continue to remain ambulatory -As we are not discharging you on blood thinners, given your anemia, you have increased risk of developing blood clots, please remain ambulatory, if you develop calf pain or calf swelling, or hemoptysis please go to the emergency room -Please hydrate well -Please follow-up with Dr. Mg -See your primary care provider in 1 week You are being discharged from the hospital today during which time you have been under the care of Dr Evangelista. You had a Right hip fracture. You were treated for this injury with IM nail. You may resume you normal diet (including any special diets as directed by your primary doctor) as well as your home medications. You should follow up with you primary doctor if you have any questions regarding medication you took prior to your stay in the hospital. You may take your pain medication as prescribed. After the first few days, take your pain medication as needed. Do not drive or drink alcohol while taking your pain medication. Your injury may increase your risk of developing a blood clot,or DVT, in your arm or leg. This could potentially dislodge and travel to your lungs and become a life threatening condition called apulmonary embolus,or PE. You have been prescribed eliquis to be taken to prevent this. Frequent movement of the legs will also help prevent this from occurring. If you develop any new or worsening cough, chestpain, bloody sputum or shortness of breath, call 911 or go to the EmergencyRoom. Always keep your surgical incision/dressing clean and dry. If you experience increasing pain at your incision site, redness, swelling, increasing discharge, foul odors, or fevers (greater than 100.4), night sweats or chills you should call the office at the above number. If you feel this is an emergency you should be evaluated in the Emergency Department of a nearby hospital. Orthopedic Patient Instructions Summary: Weight Bearing: WBAT Activity: as tolerated. Diet: regular. Wound Care: Keep dressing clean and dry. Change as needed Anticoagulation: Lovenox Pain Medication: Take only as needed. Ice, rest and elevation will be of great benefit. Please plan to follow-up [facility] Dr Evangelista in 2 weeks. You will need to call the clinic [phone] to schedule. Do not hesitate to call the office with any questions or concerns. Discharge Attestations Time Spent in Discharge Care*: greater than 30 min Quality Metrics Clinical Quality Measures [ No reported AMI, CVA or VTE this stay] Coding Level of Care Code 25550 Total time (in minutes) for Discharge: 45 Diagnoses Intertrochanteric fracture of right femur S72.141A Traumatic injury of head with hematoma of scalp S09.90XA; S00.03XA Acute blood loss as cause of postoperative anemia D62 Fracture of right hip S72.001A Vitamin B12 deficiency E53.8 Hyponatremia E87.1
[2022-12-05 13:10] LABS: SARS Covid-2 Antigen negative (Negative)
--- NOTE | 2022-12-05 14:00 | PC.NURSE ---
Report called to Emilia GRIDER at [facility]
[2022-12-05 14:48] VITALS: BP 130/70; PULSE 83; RESP 17; TEMP 36.8; O2SAT 98
== END 2022-12-05 14:30 | disposition skilled nursing facility (03) | DRG 481 ==
LOC: ER 23:14 → MEDSURG 12-02 00:09
PROVIDERS: Orthopaedic Surgery; Admitting Provider Internal Medicine; Emergency Provider Emergency Medicine; PCP Nurse Practitioner; Visit Provider Family Medicine
PROC: 0QH636Z Insertion of Intramedullary Internal Fixation Device into Right Upper Femur, Percutaneous Approach (ICD-10-PCS; CPT 27245; principal; 2022-12-02 08:20)
DX: S72.141A Displaced intertrochanteric fracture of right femur, initial encounter for closed fracture (principal); D62 Acute posthemorrhagic anemia; E87.1 Hypo-osmolality and hyponatremia; W18.30XA Fall on same level, unspecified, initial encounter; Y93.9 Activity, unspecified; Y92.017 Garden or yard in single-family (private) house as the place of occurrence of the external cause; S00.03XA Contusion of scalp, initial encounter; M17.11 Unilateral primary osteoarthritis, right knee; F41.9 Anxiety disorder, unspecified; E03.9 Hypothyroidism, unspecified; I10 Essential (primary) hypertension; E53.8 Deficiency of other specified B group vitamins; R19.5 Other fecal abnormalities; D50.9 Iron deficiency anemia, unspecified; Z79.82 Long term (current) use of aspirin; K59.01 Slow transit constipation; F03.90 Unspecified dementia, unspecified severity, without behavioral disturbance, psychotic disturbance, mood disturbance, and anxiety
CPT/HCPCS: 36415; 36430; 51702; 70450; 71045; 72125; 73501; 73552; 73560; 76000; 80048; 80053; 81001; 82274; 82550; 82607; 82728; 82746; 83540; 83550; 85014; 85018; 85025; 86850; 86900; 86920; 87426; 93005; 96372; 96374; 96375; 96376; 97116; 97161; 97165; 97530; 97535; 99285; C1713; C1776; J0690; J1170; J1650; J1885; J2270; J2405; J2704; J3010; J3490; J7030; P9016

== ENCOUNTER → 2022-12-19 10:32 | Outpatient (BNVA) | payer MEDICARE, SELFPAY | PROVIDERS: PCP Nurse Practitioner; Visit Provider Physician Assistant | DX: S72.141D Displaced intertrochanteric fracture of right femur, subsequent encounter for closed fracture with routine healing (principal); X58.XXXD Exposure to other specified factors, subsequent encounter | CPT/HCPCS: 73502; 99024 ==

== ENCOUNTER → 2022-12-27 15:11 | Outpatient (BNVA) | payer MEDICARE, SELFPAY | PROVIDERS: PCP Nurse Practitioner; Visit Provider Nurse Practitioner | DX: I10 Essential (primary) hypertension (principal); Z23 Encounter for immunization; Z87.39 Personal history of other diseases of the musculoskeletal system and connective tissue; R41.3 Other amnesia; E61.1 Iron deficiency; M62.838 Other muscle spasm; K59.01 Slow transit constipation; E87.6 Hypokalemia; E03.8 Other specified hypothyroidism | CPT/HCPCS: 80053; 83540; 84443; 85025 ==

== ENCOUNTER → 2023-01-16 09:09 | Outpatient (BNVA) | payer MEDICARE, SELFPAY | PROVIDERS: PCP Nurse Practitioner; Visit Provider Physician Assistant | DX: S72.141D Displaced intertrochanteric fracture of right femur, subsequent encounter for closed fracture with routine healing (principal); X58.XXXD Exposure to other specified factors, subsequent encounter; M17.11 Unilateral primary osteoarthritis, right knee; E61.1 Iron deficiency | CPT/HCPCS: 73502; 99024; 99204; 99213 ==

== ENCOUNTER → 2023-03-21 14:27 | Outpatient (BNVA) | payer MEDICARE, SELFPAY | PROVIDERS: PCP Nurse Practitioner; Visit Provider Nurse Practitioner | DX: E03.8 Other specified hypothyroidism (principal); E53.8 Deficiency of other specified B group vitamins; E61.1 Iron deficiency; M79.18 Myalgia, other site | CPT/HCPCS: 80053; 82607; 83540; 84443; 85025 ==

== ENCOUNTER → 2023-06-27 16:25 | Outpatient (BNVA) | payer MEDICARE, SELFPAY | PROVIDERS: PCP Nurse Practitioner; Visit Provider Nurse Practitioner | DX: I10 Essential (primary) hypertension; E03.8 Other specified hypothyroidism; E61.1 Iron deficiency | CPT/HCPCS: 80053; 83540; 84443; 85025 ==

== ENCOUNTER → 2024-03-03 14:25 | Outpatient (BNVA) | payer MEDICARE, SELFPAY | PROVIDERS: PCP Nurse Practitioner; Visit Provider Nurse Practitioner | DX: F41.9 Anxiety disorder, unspecified (principal); I10 Essential (primary) hypertension; E03.8 Other specified hypothyroidism; E53.8 Deficiency of other specified B group vitamins | CPT/HCPCS: 80053; 80061; 82607; 84443 ==

== ENCOUNTER → 2024-05-08 13:15 | Outpatient (BNVA) | payer MEDICARE, SELFPAY | PROVIDERS: PCP Nurse Practitioner; Visit Provider Nurse Practitioner | DX: R05.9 Cough, unspecified (principal) | CPT/HCPCS: 71046 ==

== ENCOUNTER → 2024-09-15 15:40 | Outpatient (BNVA) | payer MEDICARE, SELFPAY | PROVIDERS: PCP Nurse Practitioner; Visit Provider Nurse Practitioner | DX: I10 Essential (primary) hypertension (principal); E03.8 Other specified hypothyroidism; E53.8 Deficiency of other specified B group vitamins; E55.9 Vitamin D deficiency, unspecified | CPT/HCPCS: 80053; 80061; 82306; 82607; 83540; 84443; 85025 ==

== ENCOUNTER → 2025-03-02 14:54 | Outpatient (BNVA) | payer MEDICARE, SELFPAY | PROVIDERS: PCP Nurse Practitioner; Visit Provider Nurse Practitioner | DX: E55.9 Vitamin D deficiency, unspecified (principal); E03.8 Other specified hypothyroidism; E53.8 Deficiency of other specified B group vitamins; I10 Essential (primary) hypertension | CPT/HCPCS: 80053; 80061; 82306; 82607; 84439; 84443; 84481 ==